=== PATIENT | male | born 1965 | race Caucasian/White ===

== ENCOUNTER 2022-01-03 07:28 | Day surgery (SDC) | payer MEDICARE, MEDICAID ==
[~2022-01-03 07:28] MED LIST: Midazolam 1 MG/ML 2 ML SDV ONE; Propofol 200 MG/20 ML SDV ONE; fentaNYL 100 MCG/2 ML SDV ONE
[2022-01-03] MEDS ORDERED: Dextrose 5%-Lactated Ringers 1,000 ML IV SCH (08:00)
[2022-01-03] MEDS ORDERED: Glycopyrrolate 0.2 MG/ML 2 ML SDV IVPUSH ONE (08:45)
[2022-01-03 10:10] VITALS: PULSE 80
[2022-01-03 10:30] VITALS: BP 125/94
== END 2022-01-03 10:42 | disposition home or self-care (01) ==
LOC: JP.SDS 07:28
PROVIDERS: ATTEND Surgery
DX: K22.10 Ulcer of esophagus without bleeding (principal); K29.60 Other gastritis without bleeding; K44.9 Diaphragmatic hernia without obstruction or gangrene; G47.33 Obstructive sleep apnea (adult) (pediatric); E78.5 Hyperlipidemia, unspecified; E66.9 Obesity, unspecified; F17.200 Nicotine dependence, unspecified, uncomplicated; Z68.35 Body mass index [BMI] 35.0-35.9, adult; Z86.19 Personal history of other infectious and parasitic diseases
CPT/HCPCS: 43239; 87081; J2250; J2704; J3010; J7121

== ENCOUNTER 2022-03-28 07:51 | Inpatient (IN) | payer MEDICARE, MEDICAID ==
[~2022-03-28 07:51] MED LIST changes: +Bupivacaine 0.5% 30 ML SDV ONE; +Bupivacaine 0.5%/EPINEPHrine 1:200,000 50 ML MDV ONE; +Dexamethasone 4 MG/ML SDV ONE; +Glycopyrrolate 0.2 MG/ML 5 ML MDV ONE; +Lidocaine 1% 50 ML MDV ONE; +Lidocaine 1% with EPINEPHrine 1:100,000 50 ML MDV ONE; -Midazolam 1 MG/ML 2 ML SDV ONE; +Neostigmine Methylsulfate 1 MG/ML 5 ML Syringe ONE; +Ondansetron 4 MG/2 ML SDV ONE; +Rocuronium 50 MG/5 ML Vial ONE; +Succinylcholine 200 MG/10 ML MDV ONE; -fentaNYL 100 MCG/2 ML SDV ONE; +fentaNYL 250 MCG/5 ML SDV ONE
[2022-03-28] MEDS ORDERED: Celecoxib 200 MG Cap PO ONE (08:00)
[2022-03-28] MEDS ORDERED: Acetaminophen 500 MG Tab PO ONE (08:00)
[2022-03-28] MEDS ORDERED: Dextrose 5%-Lactated Ringers 1,000 ML IV SCH (08:30)
[2022-03-28] MEDS ORDERED: ceFAZolin 2 GM in Premix Bag 1 BAG IV ONE (09:30)
[2022-03-28] MEDS ORDERED: Ketamine 500 MG/5 ML MDV IV SCH (09:45)
[2022-03-28] MEDS ORDERED: Ketamine 21 MG in Sodium Chloride 0.9% 19.79 ML IV SCH (09:45)
[2022-03-28] MEDS ORDERED: Ketorolac 30 MG/ML SDV ONE (11:12)
[2022-03-28] MEDS ORDERED: Bupivacaine 0.5%/EPINEPHrine 1:200,000 50 ML MDV ONE (11:16)
[2022-03-28] MEDS ORDERED: ePHEDrine 50 MG/ML SDV ONE (11:23)
[2022-03-28] MEDS ORDERED: Sodium Chloride 0.9% 10 ML ONE (11:23)
[2022-03-28] MEDS ORDERED: Rocuronium 50 MG/5 ML Vial ONE (11:45)
[2022-03-28] MEDS ORDERED: fentaNYL 100 MCG/2 ML SDV ONE (12:07)
[2022-03-28] MEDS ORDERED: HYDROmorphone 1 MG/ML Syringe IV PRN (14:19)
[2022-03-28] MEDS ORDERED: HYDROmorphone 0.5 MG/0.5 ML Syringe IVPUSH PRN (14:19)
[2022-03-28] MEDS ORDERED: Metoclopramide 10 MG/2 ML SDV IV PRN (14:20)
[2022-03-28] MEDS ORDERED: Ondansetron 4 MG/2 ML SDV IVPUSH PRN (14:20)
[2022-03-28] MEDS ORDERED: hydrOXYzine HCL 100 MG/2 ML SDV IM PRN (14:20)
[2022-03-28] MEDS: Dextrose 5%-Lactated Ringers 1,000 ML IV SCH ×2 (14:23→21:16)
[2022-03-28] MEDS: Pantoprazole 40 MG Vial IV SCH (15:36)
[2022-03-28] MEDS: Acetaminophen 500 MG Tab PO SCH ×2 (15:37→21:14)
[2022-03-28] MEDS: Tamsulosin 0.4 MG Cap.ER PO SCH (21:14)
[2022-03-29] MEDS: Acetaminophen 500 MG Tab PO SCH ×4 (04:01→21:04)
[2022-03-29] MEDS: Dextrose 5%-Lactated Ringers 1,000 ML IV SCH (06:10)
[2022-03-29] MEDS ORDERED: Dextrose 5%-Lactated Ringers 1,000 ML IV SCH (08:00)
[2022-03-29] MEDS: Bisacodyl 5 MG Tab PO SCH ×2 (08:40→21:04)
[2022-03-29] MEDS: Aspirin 81 MG Tab.EC PO SCH (08:41)
[2022-03-29] MEDS: Lisinopril 20 MG Tab PO SCH (08:41)
[2022-03-29] MEDS: atorvaSTATin 20 MG Tab PO SCH (08:41)
[2022-03-29] MEDS: Docusate Sodium 100 MG Cap PO SCH ×2 (08:41→21:04)
[2022-03-29] MEDS: amLODIPine 5 MG Tab PO SCH (08:42)
[2022-03-29] MEDS: HYDROmorphone 2 MG Tab PO PRN ×2 (10:44→17:32)
[2022-03-29] MEDS: Pantoprazole 40 MG Vial IV SCH (15:21)
[2022-03-29] MEDS: Tamsulosin 0.4 MG Cap.ER PO SCH (21:04)
[2022-03-30] MEDS: Acetaminophen 500 MG Tab PO SCH ×2 (03:08→09:20)
[2022-03-30 07:34] VITALS: BP 146/90; PULSE 68
[2022-03-30] MEDS: Bisacodyl 5 MG Tab PO SCH (09:19)
[2022-03-30] MEDS: Lisinopril 20 MG Tab PO SCH (09:19)
[2022-03-30] MEDS: Docusate Sodium 100 MG Cap PO SCH (09:19)
[2022-03-30] MEDS: atorvaSTATin 20 MG Tab PO SCH (09:20)
[2022-03-30] MEDS: Aspirin 81 MG Tab.EC PO SCH (09:20)
[2022-03-30] MEDS: amLODIPine 5 MG Tab PO SCH (09:20)
[2022-03-30] MEDS ORDERED: Magnesium Hydroxide 400 MG/5 ML Susp 30 ML Cup PO PRN (10:05)
== END 2022-03-30 10:45 | disposition home or self-care (01) | DRG 327 ==
LOC: JP.SDS 07:51 → JP.2SS 12:00 → JP.SDS 03-29 11:24 → JP.2SS 03-29 11:24
PROVIDERS: ADMIT Surgery; ATTEND Surgery
PROC: 0WQF4ZZ Repair Abdominal Wall, Percutaneous Endoscopic Approach (ICD-10-PCS; principal; 2022-03-28)
PROC: 0BUT4JZ Supplement Diaphragm with Synthetic Substitute, Percutaneous Endoscopic Approach (ICD-10-PCS; principal; 2022-03-28)
PROC: 0DQ44ZZ Repair Esophagogastric Junction, Percutaneous Endoscopic Approach (ICD-10-PCS; principal; 2022-03-28)
PROC: 3E0M45Z Introduction of Adhesion Barrier into Peritoneal Cavity, Percutaneous Endoscopic Approach (ICD-10-PCS; principal; 2022-03-28)
PROC: 0JB63ZZ Excision of Chest Subcutaneous Tissue and Fascia, Percutaneous Approach (ICD-10-PCS; principal; 2022-03-28)
PROC: 0DNU4ZZ Release Omentum, Percutaneous Endoscopic Approach (ICD-10-PCS; principal; 2022-03-28)
DX: K21.9 Gastro-esophageal reflux disease without esophagitis (principal); K42.0 Umbilical hernia with obstruction, without gangrene; K44.9 Diaphragmatic hernia without obstruction or gangrene; D17.4 Benign lipomatous neoplasm of intrathoracic organs; I10 Essential (primary) hypertension; M54.59 Other low back pain; F17.210 Nicotine dependence, cigarettes, uncomplicated; Z90.49 Acquired absence of other specified parts of digestive tract; Z98.890 Other specified postprocedural states; Z79.82 Long term (current) use of aspirin; Z79.899 Other long term (current) drug therapy; Z88.8 Allergy status to other drugs, medicaments and biological substances; K66.0 Peritoneal adhesions (postprocedural) (postinfection)
CPT/HCPCS: A9270-GY; C1713; C1781; C9113; J0171; J0330; J0690; J1100; J1170; J1885; J2001; J2405; J2704; J2710; J2795; J3010; J3410; J3490; J7121

== ENCOUNTER 2024-10-27 07:49 | Day surgery (SDC) | payer MEDICARE, MEDICAID ==
[~2024-10-27 07:49] MED LIST changes: -Bupivacaine 0.5% 30 ML SDV ONE; -Bupivacaine 0.5%/EPINEPHrine 1:200,000 50 ML MDV ONE; -Dexamethasone 4 MG/ML SDV ONE; -Glycopyrrolate 0.2 MG/ML 5 ML MDV ONE; -Lidocaine 1% 50 ML MDV ONE; -Lidocaine 1% with EPINEPHrine 1:100,000 50 ML MDV ONE; -Neostigmine Methylsulfate 1 MG/ML 5 ML Syringe ONE; -Ondansetron 4 MG/2 ML SDV ONE; -Rocuronium 50 MG/5 ML Vial ONE; -Succinylcholine 200 MG/10 ML MDV ONE; -fentaNYL 250 MCG/5 ML SDV ONE; +fentaNYL 50 MCG/ML SDV ONE
[2024-10-27] MEDS ORDERED: Midazolam 1 MG/ML 2 ML SDV ONE (08:13)
[2024-10-27] MEDS: Lactated Ringers 1,000 ML IV SCH (08:20)
[2024-10-27] MEDS ORDERED: Propofol 200 MG/20 ML SDV ONE (08:37)
[2024-10-27 10:33] VITALS: BP 116/79; PULSE 54
== END 2024-10-27 10:43 | disposition home or self-care (01) ==
LOC: JP.SDS 07:49
PROVIDERS: ATTEND Surgery
DX: Z12.11 Encounter for screening for malignant neoplasm of colon (principal); I10 Essential (primary) hypertension; E66.9 Obesity, unspecified; F17.200 Nicotine dependence, unspecified, uncomplicated; Z53.8 Procedure and treatment not carried out for other reasons
CPT/HCPCS: 00811; 45378; J2250; J2704; J3010; J7120

== ENCOUNTER 2024-10-28 06:32 | Day surgery (SDC) | payer MEDICARE, MEDICAID ==
[2024-10-28] MEDS: Lactated Ringers 1,000 ML IV SCH (07:21)
[2024-10-28] MEDS ORDERED: Propofol 200 MG/20 ML SDV ONE (07:28)
[2024-10-28] MEDS ORDERED: Midazolam 1 MG/ML 2 ML SDV ONE (07:29)
[2024-10-28] MEDS ORDERED: fentaNYL 100 MCG/2 ML SDV ONE (07:29)
[2024-10-28 10:03] VITALS: BP 116/79; PULSE 64
== END 2024-10-28 09:35 | disposition home or self-care (01) ==
LOC: JP.SDS 06:32
PROVIDERS: ATTEND Surgery
DX: Z12.11 Encounter for screening for malignant neoplasm of colon (principal); D12.3 Benign neoplasm of transverse colon; K21.9 Gastro-esophageal reflux disease without esophagitis; G47.33 Obstructive sleep apnea (adult) (pediatric); Z88.8 Allergy status to other drugs, medicaments and biological substances
CPT/HCPCS: 45385; 88305; J2250; J2704; J3010; J7120; 00811-QZ